=== PATIENT | male | born 1955 | race Caucasian/White ===

== ENCOUNTER 2016-12-29 12:59 | Inpatient (IN) | payer OTHER ==
[2016-12-29 16:13] VITALS: BMI 33.8
--- NOTE | 2016-12-29 18:03 | HP ---
Admission ROS [facility] - [facility] Chief Complaint: I WANT TO GO TO REHAB Allergies/Adverse Reactions: Allergies Allergy/AdvReac Type Severity Reaction Status Date / Time No Known Allergies Allergy Verified 12/29/16 16:14 History of Present Illness: 61 YEARS OLD MALE WITH LONG HISTORY OF XANAX DEPENDENCE HAS HEPATITIS C TREATED , HYPERTENSION IS ADMITTED TO REHAB Exam Limitations: No Limitations - Ebola screening Have you traveled outside of the country in the last 21 days: No Have you had contact with anyone from an Ebola affected area: No Have you been sick,other than usual withdrawal symptoms: No Do you have a fever: No - Review of Systems Constitutional: No Symptoms Reported EENT: reports: Blurred Vision Respiratory: reports: No Symptoms reported Cardiac: reports: No Symptoms Reported GI: reports: No Symptoms Reported : reports: No Symptoms Reported Musculoskeletal: reports: No Symptoms Reported Integumentary: reports: No Symptoms Reported Neuro: reports: No Symptoms reported Endocrine: reports: No Symptoms Reported Hematology: reports: No Symptoms Reported Psychiatric: reports: Judgement Intact, Mood/Affect Appropiate, Orientated x3 Other Systems: Reviewed and Negative Patient History - Patient Medical History Hx Anemia: No Hx Asthma: No Hx Chronic Obstructive Pulmonary Disease (COPD): No Hx Cancer: No Hx Cardiac Disorders: No Hx Congestive Heart Failure: No Hx Hypertension: Yes (currently on treatment) Hx Hypercholesterolemia: No Hx Pacemaker: No HX Cerebrovascular Accident: No Hx Seizures: No Hx Dementia: No Hx Diabetes: No Hx Gastrointestinal Disorders: No Hx Liver Disease: No Hx Genitourinary Disorders: No Hx Sexually Transmitted Disorders: No Hx Renal Disease (ESRD): No Hx Thyroid Disease: No Hx Human Immunodeficiency Virus (HIV): No Hx Hepatitis C: Yes (since 1999) Hx Depression: Yes (anxiety and depression) Hx Suicide Attempt: No Hx Bipolar Disorder: No Hx Schizophrenia: No - Patient Surgical History Past Surgical History: Yes Hx Neurologic Surgery: No Hx Cataract Extraction: No Hx Cardiac Surgery: No Hx Lung Surgery: No Hx Breast Surgery: No Hx Breast Biopsy: No Hx Abdominal Surgery: No Hx Appendectomy: No Hx Cholecystectomy: No Hx Genitourinary Surgery: No Hx Orthopedic Surgery: No Other Surgical History: pleurisy in 1983 Anesthesia Reaction: No - PPD History Previous Implant?: Yes Documented Results: Negative w/proof Implanted On Prior R Admission?: No Date: 10/06/11 PPD to be Administered?: Yes - Smoking Cessation Smoking history: Current every day smoker Have you smoked in the past 12 months: No Aproximately how many cigarettes per day: 0 Hx Chewing Tobacco Use: No Initiated information on smoking cessation: No - Substance & Tx. History Hx Alcohol Use: No Hx Substance Use: Yes Substance Use Type: Tranquilizers Hx Substance Use Treatment: Yes (2011) - Substances Abused Alprazolam (Xanax) Route: Oral Frequency: 3-6 times per week Amount used: 2mg Age of first use: 42 Date of Last Use: 12/28/16 Family Disease History - Family Disease History Family Disease History: Heart Disease: Father (), CA: Mother () , Other: Father, Mother, Brother (/HIV) Admission Physical Exam [facility] - Vital Signs Vital Signs: Vital Signs - 24 hr 12/29/16 16:11 Temperature 96.0 F L Pulse Rate 57 L Respiratory 18 Rate Blood Pressure 163/96 - Physical General Appearance: Yes: No Apparent Distress, Nourished, Appropriately Dressed HEENTM: Yes: Hearing grossly Normal, Normal ENT Inspection, Normocephalic, Normal Voice Respiratory: Yes: Chest Non-Tender, Lungs Clear, Normal Breath Sounds, No Respiratory Distress, No Accessory Muscle Use Neck: Yes: Supple, Trachea in good position Breast: Yes: Breasts Symetrical Cardiology: Yes: Regular Rhythm, Regular Rate, S1, S2 Abdominal: Yes: Normal Bowel Sounds, Non Tender, Soft Genitourinary: Yes: Within Normal Limits Back: Yes: Normal Inspection Musculoskeletal: Yes: full range of Motion, Gait Steady Extremities: Yes: Normal Inspection, Normal Range of Motion, Non-Tender Neurological: Yes: Fully Oriented, Alert, Motor Strength 5/5, Normal Mood/Affect , Normal Response Integumentary: Yes: Warm Lymphatic: Yes: Within Normal Limits - Diagnostic (1) Sedative, hypnotic or anxiolytic dependence with withdrawal, uncomplicated Current Visit: Yes Status: Acute (2) methadone maintennence Current Visit: Yes Status: Chronic Comment: 100 MG DAILY VERIFICATION PENDING (3) Hepatitis C antibody positive in blood Current Visit: Yes Status: Chronic Comment: Continue Epclusa, RTC in 2 weeks for blood draw (4) Hypertension Current Visit: Yes Status: Chronic Qualifiers: Hypertension type: essential hypertension Qualified Code(s): I10 - Essential (primary) hypertension Comment: Pt is F/U with PCP Cleared for Admission S - Detox or Rehab [facility] Level of Care: Observation Bed Detox Regimen/Protocol: Not Applicable Claeared for Rehab Admission: Yes [facility] Breath Alcohol Content Breath Alcohol Content: 0 Urine Drug Screen - Results Drug Screen Negative: No Urine Drug Screen Results: BZO-Benzodiazepines, MTD-Methadone Inpatient Rehab Admission - Initial Determination Are CD services needed?: Yes Free of communicable disease: Yes Not in need of hospitalization: Yes - Rehab Admission Criteria Previous failed treatment: Yes Poor recovery environment: Yes Comorbidities: Yes Lacks judgement: No Patient is meeting Inpatient Rehab admission criteria:: Yes
[2016-12-29] MEDS ORDERED: NICOTINE POLACRILEX 2 MG GUM BC PRN (18:15)
[2016-12-29] MEDS ORDERED: P-EPHED 60MG/TRIPROLIDI 2.5MG TABLET PO PRN (18:15)
[2016-12-29] MEDS ORDERED: guaiFENesin/D-METHORPHAN HB 10 ML UNIT-DOSE CUPS PO PRN (18:15)
[2016-12-29] MEDS ORDERED: MAGNESIUM CITRATE 300 ML BOTTLE PO PRN (18:15)
[2016-12-29] MEDS ORDERED: IBUPROFEN 400 MG TABLET (FP) PO PRN (18:15)
[2016-12-29] MEDS ORDERED: MAG HYDROX/AL HYDROX/SIMETH 30 ML UNIT-DOSE CUP PO PRN (18:15)
[2016-12-29] MEDS ORDERED: MENTHOL/PHENOL 1 EACH UD MM PRN (18:15)
[2016-12-29] MEDS ORDERED: MAGNESIUM HYDROX 2400MG/30ML ORAL SUSPENSION 30 ML CUP PO PRN (18:15)
[2016-12-29] MEDS ORDERED: LOPERAMIDE HCL 2 MG CAPSULE PO PRN (18:15)
[2016-12-29] MEDS ORDERED: ACETAMINOPHEN 325 MG TABLET (FP) PO PRN (18:15)
[2016-12-29] MEDS ORDERED: cloNIDine HCL 0.1 MG TABLET PO PRN (18:18)
[2016-12-29] MEDS ORDERED: NICOTINE 14 MG/24 HOURS TOPICAL PATCH TD PRN (19:00)
[2016-12-29] MEDS: THIAMINE HCL 100 MG TABLET (FP) PO SCH (22:03)
[2016-12-29] MEDS: LISINOPRIL 20 MG TABLET (FP) PO SCH (22:03)
[2016-12-29 22:11] LABS: URINE APPEARANCE CLEAR; URINE BILIRUBIN NEGATIVE (NEGATIVE); URINE BLOOD NEGATIVE (NEGATIVE); URINE COLOR YELLOW; URINE GLUCOSE (UA) NEGATIVE (NEGATIVE); URINE KETONE NEGATIVE (NEGATIVE); URINE NITRITE NEGATIVE (NEGATIVE); URINE PROTEIN NEGATIVE (NEGATIVE)
--- NOTE | 2016-12-30 06:40 | HP ---
Psychiatrist Admission - Data Date of interview: 12/30/16 Admission source: [facility] Identifying data: This is the first [facility] admission for this 61 years old single male, unemployed on public assistance, living in a room Medical History: Significant for hypertension, Hep C since 1999, LBP and a history of surgery for pleurisy in 1983. Patient is on methadone 100 mg/day. Smokes 5 cigarettes daily Psychiatric History: Denies history of previous psychiatric treatment Physical/Sexual Abuse/Trauma History: Denies history of verbal, physical or sexual abuse as well as DV relationship. No service Additional Comment: Denies previous criminal history Vital Signs: Vital Signs - 24 hr 12/29/16 12/30/16 12/30/16 16:11 00:30 03:30 Temperature 96.0 F L Pulse Rate 57 L Respiratory 18 18 18 Rate Blood Pressure 163/96 Allergies/Adverse Reactions: Allergies Allergy/AdvReac Type Severity Reaction Status Date / Time No Known Allergies Allergy Verified 12/29/16 16:14 Date of last physical exam: 12/29/16 Concur with the findings of this exam: Yes - Substance Abuse/Tx History Hx Alcohol Use: No Hx Substance Use: Yes Substance Use Type: Tranquilizers (Started using xanax at age 42, consumes 2 mg 3-6 times daily. Last smokes on 12/28/16) Hx Substance Use Treatment: Yes (Attends [facility]; One previous inpt detox @ [facility] in Sep 2011) Mental Status Exam - Mental Status Exam Alert and Oriented to: Time, Place, Person Cognitive Function: Fair Patient Appearance: Well Groomed Mood: Hopeful, Euthymic Patient Behavior: Cooperative Speech Pattern: Clear Voice Loudness: Normal Thought Process: Intact, Goal Oriented Thought Disorder: Not Present Hallucinations: Denies Suicidal Ideation: Denies Homicidal Ideation: Denies Insight/Judgement: Fair Sleep: Well Appetite: Good Muscle strength/Tone: Normal Gait/Station: Normal Psychiatric Findings - Problem List ([place] 1, 2,3) (1) Sedative hypnotic or anxiolytic dependence Current Visit: Yes Status: Acute (2) Opioid dependence on agonist therapy Current Visit: Yes Status: Acute (3) Nicotine dependence Current Visit: Yes Status: Acute (4) Hepatitis C antibody positive in blood Current Visit: Yes Status: Chronic Comment: Continue Epclusa, RTC in 2 weeks for blood draw (5) Hypertension Current Visit: Yes Status: Chronic Qualifiers: Hypertension type: essential hypertension Qualified Code(s): I10 - Essential (primary) hypertension Comment: Pt is F/U with PCP (6) Lower back pain Current Visit: No Status: Acute - Initial Treatment Plan Initial Treatment Plan: Monitor progress
[2016-12-30] MEDS ORDERED: METHADONE HCL 10 MG TABLET PO SCH (07:45)
[2016-12-30] MEDS ORDERED: METHADONE HCL 40 MG DISPERSABLE TABLET ONE (07:54)
[2016-12-30] MEDS ORDERED: METHADONE HCL 10 MG TABLET ONE (07:54)
[2016-12-30] MEDS: METHADONE 80 MG, METHADONE 20 MG PO SCH (07:56)
[2016-12-30 09:50] LABS: MCH 30.6 pg (25.7-33.7); MCHC 33.8 g/dl (32.0-35.9); MEAN CELL VOLUME 90.7 fl (80-96); MEAN PLT VOLUME 8.6 fl (7.5-11.1); PLATELET COUNT 123 K/MM3 (134-434); RDW 14.5 % (11.9-15.9); WHITE BLOOD COUNT 3.7 K/mm3 (4.0-10.0)
[2016-12-30] MEDS: PRENATAL VITAMINS W/ FOLIC ACID TABLET (FP) PO SCH (10:10)
[2016-12-30] MEDS: LISINOPRIL 20 MG TABLET (FP) PO SCH (10:10)
[2016-12-30 11:05] LABS: URINE LEUK ESTERASE Negative (NEGATIVE)
[2016-12-30 11:05] LABS: ALBUMIN 4.1 g/dl (3.4-5.0); ALK PHOS 61 U/L (45-117); ANION GAP 5 (8-16); BILIRUBIN,TOTAL 1.5 mg/dL (0.2-1.0); CALCIUM 9.3 mg/dL (8.5-10.1); CO2 31 mmol/L (21-32); CREATININE 0.9 mg/dL (0.7-1.3); GLUCOSE,RANDOM 129 mg/dL (74-106); SGOT/AST 49 U/L (15-37); SGPT/ALT 59 U/L (12-78); TOT PROT 8.5 g/dl (6.4-8.2)
[2016-12-30] MEDS: THIAMINE HCL 100 MG TABLET (FP) PO SCH (21:15)
[2016-12-31] MEDS ORDERED: METHADONE HCL 10 MG TABLET ONE (04:16)
[2016-12-31] MEDS ORDERED: METHADONE HCL 40 MG DISPERSABLE TABLET ONE (04:16)
[2016-12-31] MEDS: METHADONE 80 MG, METHADONE 20 MG PO SCH (06:11)
[2016-12-31] MEDS: PRENATAL VITAMINS W/ FOLIC ACID TABLET (FP) PO SCH (09:39)
[2016-12-31] MEDS: LISINOPRIL 20 MG TABLET (FP) PO SCH (09:39)
--- NOTE | 2016-12-31 16:41 | EKG ---
Test Reason : Blood Pressure : / mmHG Vent. Rate : 060 BPM Atrial Rate : 060 BPM P-R Int : 178 ms QRS Dur : 096 ms QT Int : 464 ms P-R-T Axes : 049 -12 033 degrees QTc Int : 464 ms NORMAL SINUS RHYTHM BASELINE ARTIFACT ST-T WAVE ABNORMALITIES U WAVES IN SELECTED LEADS WHEN COMPARED WITH ECG OF 29-DEC-2016 22:40, T WAVE INVERSION NOW EVIDENT IN ANTERIOR LEADS REPEAT EKG IF CLINICALLY INDICATED Confirmed by AWAIS SETH MD ([id number]) on 12/31/2016 4:41:15 PM Referred By: DAVID KIRKLAND Confirmed By:AWAIS SETH MD
[2016-12-31] MEDS: THIAMINE HCL 100 MG TABLET (FP) PO SCH (21:47)
[2017-01-01] MEDS ORDERED: METHADONE HCL 10 MG TABLET ONE (04:44)
[2017-01-01] MEDS ORDERED: METHADONE HCL 40 MG DISPERSABLE TABLET ONE (04:45)
[2017-01-01] MEDS: METHADONE 80 MG, METHADONE 20 MG PO SCH (06:05)
[2017-01-01] MEDS: PRENATAL VITAMINS W/ FOLIC ACID TABLET (FP) PO SCH (09:48)
[2017-01-01] MEDS: LISINOPRIL 20 MG TABLET (FP) PO SCH (09:48)
[2017-01-01] MEDS: THIAMINE HCL 100 MG TABLET (FP) PO SCH (21:30)
[2017-01-02] MEDS ORDERED: METHADONE HCL 10 MG TABLET ONE (04:39)
[2017-01-02] MEDS ORDERED: METHADONE HCL 40 MG DISPERSABLE TABLET ONE (04:39)
[2017-01-02] MEDS: METHADONE 80 MG, METHADONE 20 MG PO SCH (06:08)
[2017-01-02] MEDS: LISINOPRIL 20 MG TABLET (FP) PO SCH (09:53)
[2017-01-02] MEDS: PRENATAL VITAMINS W/ FOLIC ACID TABLET (FP) PO SCH (09:53)
[2017-01-02] MEDS: THIAMINE HCL 100 MG TABLET (FP) PO SCH (21:36)
[2017-01-03] MEDS ORDERED: METHADONE HCL 40 MG DISPERSABLE TABLET ONE (04:05)
[2017-01-03] MEDS ORDERED: METHADONE HCL 10 MG TABLET ONE (04:05)
[2017-01-03] MEDS: METHADONE 80 MG, METHADONE 20 MG PO SCH (06:11)
[2017-01-03] MEDS: PRENATAL VITAMINS W/ FOLIC ACID TABLET (FP) PO SCH (09:55)
[2017-01-03] MEDS: LISINOPRIL 20 MG TABLET (FP) PO SCH (09:55)
[2017-01-03] MEDS: THIAMINE HCL 100 MG TABLET (FP) PO SCH (22:03)
[2017-01-04] MEDS ORDERED: METHADONE HCL 10 MG TABLET ONE (04:06)
[2017-01-04] MEDS ORDERED: METHADONE HCL 40 MG DISPERSABLE TABLET ONE (04:06)
[2017-01-04] MEDS: METHADONE 80 MG, METHADONE 20 MG PO SCH (06:34)
[2017-01-04] MEDS: LISINOPRIL 20 MG TABLET (FP) PO SCH (09:48)
[2017-01-04] MEDS: PRENATAL VITAMINS W/ FOLIC ACID TABLET (FP) PO SCH (09:48)
--- NOTE | 2017-01-04 11:48 | EKG ---
Test Reason : Blood Pressure : / mmHG Vent. Rate : 055 BPM Atrial Rate : 055 BPM P-R Int : 192 ms QRS Dur : 098 ms QT Int : 530 ms P-R-T Axes : 052 000 029 degrees QTc Int : 507 ms SINUS BRADYCARDIA PROLONGED QT ABNORMAL ECG WHEN COMPARED WITH ECG OF 17-OCT-2016 09:55, QT HAS LENGTHENED Confirmed by ADÁN PLAZA, AYAKA ([id number]) on 01/04/2017 11:47:32 AM Referred By: DAVID KIRLKAND Confirmed By:AYAKA MCCAIN MD
[2017-01-04] MEDS: THIAMINE HCL 100 MG TABLET (FP) PO SCH (21:22)
[2017-01-05] MEDS ORDERED: METHADONE HCL 40 MG DISPERSABLE TABLET ONE (05:37)
[2017-01-05] MEDS ORDERED: METHADONE HCL 10 MG TABLET ONE (05:37)
[2017-01-05] MEDS: METHADONE 80 MG, METHADONE 20 MG PO SCH (06:16)
[2017-01-05] MEDS: LISINOPRIL 20 MG TABLET (FP) PO SCH (10:01)
[2017-01-05] MEDS: PRENATAL VITAMINS W/ FOLIC ACID TABLET (FP) PO SCH (10:01)
[2017-01-05] MEDS: THIAMINE HCL 100 MG TABLET (FP) PO SCH (21:44)
[2017-01-06] MEDS ORDERED: METHADONE HCL 10 MG TABLET ONE (03:54)
[2017-01-06] MEDS ORDERED: METHADONE HCL 40 MG DISPERSABLE TABLET ONE (03:54)
[2017-01-06] MEDS: METHADONE 80 MG, METHADONE 20 MG PO SCH (06:14)
[2017-01-06] MEDS: LISINOPRIL 20 MG TABLET (FP) PO SCH (09:40)
[2017-01-06] MEDS: PRENATAL VITAMINS W/ FOLIC ACID TABLET (FP) PO SCH (09:40)
[2017-01-06] MEDS: THIAMINE HCL 100 MG TABLET (FP) PO SCH (21:23)
[2017-01-07] MEDS ORDERED: METHADONE HCL 40 MG DISPERSABLE TABLET ONE (03:56)
[2017-01-07] MEDS ORDERED: METHADONE HCL 10 MG TABLET ONE (03:56)
[2017-01-07] MEDS: METHADONE 80 MG, METHADONE 20 MG PO SCH (06:18)
[2017-01-07] MEDS: LISINOPRIL 20 MG TABLET (FP) PO SCH (09:34)
[2017-01-07] MEDS: PRENATAL VITAMINS W/ FOLIC ACID TABLET (FP) PO SCH (09:34)
[2017-01-07] MEDS: THIAMINE HCL 100 MG TABLET (FP) PO SCH (21:57)
[2017-01-08] MEDS: METHADONE 80 MG, METHADONE 20 MG PO SCH (06:09)
[2017-01-08] MEDS ORDERED: METHADONE HCL 40 MG DISPERSABLE TABLET ONE (06:09)
[2017-01-08] MEDS ORDERED: METHADONE HCL 10 MG TABLET ONE (06:09)
[2017-01-08] MEDS: LISINOPRIL 20 MG TABLET (FP) PO SCH (09:44)
[2017-01-08] MEDS: PRENATAL VITAMINS W/ FOLIC ACID TABLET (FP) PO SCH (09:44)
[2017-01-08] MEDS: THIAMINE HCL 100 MG TABLET (FP) PO SCH (21:20)
[2017-01-09] MEDS ORDERED: METHADONE HCL 40 MG DISPERSABLE TABLET ONE (04:13)
[2017-01-09] MEDS ORDERED: METHADONE HCL 10 MG TABLET ONE (04:13)
[2017-01-09] MEDS: METHADONE 80 MG, METHADONE 20 MG PO SCH (06:25)
[2017-01-09] MEDS: LISINOPRIL 20 MG TABLET (FP) PO SCH (10:12)
[2017-01-09] MEDS: PRENATAL VITAMINS W/ FOLIC ACID TABLET (FP) PO SCH (10:12)
[2017-01-09] MEDS: THIAMINE HCL 100 MG TABLET (FP) PO SCH (21:25)
[2017-01-10] MEDS ORDERED: METHADONE HCL 10 MG TABLET ONE (04:44)
[2017-01-10] MEDS ORDERED: METHADONE HCL 40 MG DISPERSABLE TABLET ONE (04:44)
[2017-01-10] MEDS: METHADONE 80 MG, METHADONE 20 MG PO SCH (06:01)
[2017-01-10] MEDS: PRENATAL VITAMINS W/ FOLIC ACID TABLET (FP) PO SCH (09:41)
[2017-01-10] MEDS: LISINOPRIL 20 MG TABLET (FP) PO SCH (09:41)
[2017-01-10] MEDS: THIAMINE HCL 100 MG TABLET (FP) PO SCH (21:35)
[2017-01-11] MEDS ORDERED: METHADONE HCL 10 MG TABLET ONE ×2 (06:15→19:13)
[2017-01-11] MEDS ORDERED: METHADONE HCL 40 MG DISPERSABLE TABLET ONE ×2 (06:15→19:13)
[2017-01-11] MEDS: METHADONE 80 MG, METHADONE 20 MG PO SCH (06:16)
[2017-01-11] MEDS: PRENATAL VITAMINS W/ FOLIC ACID TABLET (FP) PO SCH (09:54)
[2017-01-11] MEDS: LISINOPRIL 20 MG TABLET (FP) PO SCH (09:54)
[2017-01-11] MEDS: THIAMINE HCL 100 MG TABLET (FP) PO SCH (21:37)
[2017-01-12] MEDS: METHADONE 80 MG, METHADONE 20 MG PO SCH (06:30)
[2017-01-12] MEDS: PRENATAL VITAMINS W/ FOLIC ACID TABLET (FP) PO SCH (09:37)
[2017-01-12] MEDS: LISINOPRIL 20 MG TABLET (FP) PO SCH (09:37)
[2017-01-12] MEDS: THIAMINE HCL 100 MG TABLET (FP) PO SCH (21:26)
[2017-01-13] MEDS ORDERED: METHADONE HCL 10 MG TABLET ONE (03:57)
[2017-01-13] MEDS ORDERED: METHADONE HCL 40 MG DISPERSABLE TABLET ONE (03:58)
[2017-01-13] MEDS: METHADONE 80 MG, METHADONE 20 MG PO SCH (06:24)
[2017-01-13 07:09] VITALS: BP 145/83; PULSE 58; TEMP 97
[2017-01-13] MEDS: PRENATAL VITAMINS W/ FOLIC ACID TABLET (FP) PO SCH (09:52)
[2017-01-13] MEDS: LISINOPRIL 20 MG TABLET (FP) PO SCH (09:52)
--- NOTE | 2017-01-13 11:07 | PN ---
Psychiatric Progress Note Vital Signs: Vital Signs Period Temp Pulse Resp BP Sys/Bone Pulse Ox Last 24 Hr 97 F 58 20-20 145/83 Date of Session: 01/13/17 Chief Complaint:: Discharge visit HPI: Patient addressed Opioid dependence (on agonist therapy-Methadone 100 mg po daily). ROS: Significant for HTN,Hep C. Current Medications: Active Medications Generic Name Dose Route Start Last Admin Trade Name Freq PRN Reason Stop Dose Admin Acetaminophen 650 mg 12/29/16 18:15 Tylenol - PO Q4H PRN PAIN Al Hydroxide/Mg Hydroxide 30 ml 12/29/16 18:15 Mylanta Oral Suspension - PO Q6H PRN DYSPEPSIA Clonidine 0.1 mg 12/29/16 18:18 Catapres - PO Q6H PRN HYPERTENSION Eucalyptus/Menthol/Phenol/Sorbitol 1 each 12/29/16 18:15 Cepastat Lozenge - MM Q4H PRN SORE THROAT Guaifenesin 10 ml 12/29/16 18:15 Robitussin Dm - PO Q6H PRN COUGH Ibuprofen 400 mg 12/29/16 18:15 Motrin - PO Q6H PRN SEVERE PAIN Lisinopril 20 mg 12/29/16 19:00 01/13/17 09:52 Prinivil PO 20 mg DAILY DANA Administration Loperamide HCl 4 mg 12/29/16 18:15 Imodium - PO Q6H PRN DIARRHEA Magnesium Citrate 300 ml 12/29/16 18:15 Citroma - PO Q48H PRN CONSTIPATION Magnesium Hydroxide 30 ml 12/29/16 18:15 Milk Of Magnesia - PO DAILY PRN CONSTIPATION Methadone HCl 80 mg/ Methadone 100 mg 01/11/17 06:00 01/13/17 06:24 HCl 20 mg PO 01/18/17 05:59 100 mg DAILY@0600 DANA Administration Nicotine 14 mg 12/29/16 19:00 Nicoderm Patch - TD DAILY PRN WITHDRAWAL(CONT SUBST) Nicotine Polacrilex 2 mg 12/29/16 18:15 Nicorette Gum - BC Q2H PRN NICOTINE REPLACEMENT RX Multivit/Folic Acid/Iron 1 tab 12/30/16 10:00 01/13/17 09:52 Vitamins (Sjr) - PO 1 tab DAILY DANA Administration Pseudoephedrine/Triprolidine 1 combo 12/29/16 18:15 Actifed - PO TID PRN NASAL CONGESTION Thiamine HCl 100 mg 12/29/16 22:00 01/12/17 21:26 Vitamin B1 - PO 100 mg HS DANA Administration Current Side Effect: No Lab tests ordered: No Lab tests reviewed: Yes Provider note:: Patient completed this program today.He has met his treatment goals and will continue to address his issues on outpatient basis at [facility] (methadone 100 mg po daily).Patient identifies areas of difficulties and ways,support,coping skills he can utilizr to [facility]. Supportive therapy provided. Patient is stable for discharge today. Total face to face time:: 30 Mental Status Exam - Mental Status Exam Alert and Oriented to: Time, Place, Person Cognitive Function: Grossly Intact Patient Appearance: Unkempt Mood: Hopeful, Euthymic Affect: Appropriate, Mood Congruent Patient Behavior: Cooperative Speech Pattern: Clear Voice Loudness: Normal Thought Process: Goal Oriented Thought Disorder: Not Present Hallucinations: Denies Suicidal Ideation: Denies Homicidal Ideation: Denies Insight/Judgement: Fair Sleep: Well Appetite: Good Muscle strength/Tone: Normal Psychiatric Treatment Plan - Problem List (1) Nicotine dependence Current Visit: Yes (2) Opioid dependence on agonist therapy Current Visit: Yes (3) Sedative hypnotic or anxiolytic dependence Current Visit: Yes (4) Hypertension Current Visit: Yes Qualifiers: Hypertension type: essential hypertension Qualified Code(s): I10 - Essential (primary) hypertension Comment: Pt is F/U with PCP (5) methadone maintennence Current Visit: Yes Comment: 100 MG DAILY VERIFICATION PENDING (6) Hepatitis C carrier Current Visit: No Comment: draw labs today, EKG and CXR. RTC in 3 weeks for lab results and further determination of treatment options.
== END 2017-01-13 11:20 | disposition home or self-care (01) | DRG 772 ==
LOC: YASAS 12:59 → Y3W 17:40
PROVIDERS: ADMIT Psychiatry & Neurology Psychiatry; ATTEND Psychiatry & Neurology Psychiatry
PROC: HZ42ZZZ Group Counseling for Substance Abuse Treatment, Cognitive-Behavioral (ICD-10-PCS; principal; 2016-12-29)
DX: F13.20 Sedative, hypnotic or anxiolytic dependence, uncomplicated (principal); F11.20 Opioid dependence, uncomplicated; F17.210 Nicotine dependence, cigarettes, uncomplicated; I10 Essential (primary) hypertension; B18.2 Chronic viral hepatitis C; M54.5 Low back pain
CPT/HCPCS: 36415; 80053; 81003; 85027; 86593; 93005; 93010